=== PATIENT | female | born 1985 | race Asian ===

== ENCOUNTER 2024-07-27 23:19 | Emergency (ER) | payer SELFPAY ==
[~2024-07-27] VITALS: Ht 157.5 cm; Wt 68.0 kg
[2024-07-27 23:31] VITALS: O2SAT 98
[2024-07-28 02:36] LABS: BASOPHILS % 0.3 % (0.0-2.0); EOSINOPHILS % 0.2 % (0.0-5.0); HEMATOCRIT. 39.6 % (36.0-48.0); HEMOGLOBIN. 13.3 g/dL (12.0-16.0); LYMPHOCYTES % 16.2 % (20.0-50.0); MEAN CORPUSCULAR HEMOGLOBIN 29.2 pg (28.0-32.0); MEAN CORPUSCULAR HGB CONC 33.5 g/dL (31.0-37.0); MEAN CORPUSCULAR VOLUME 87.2 fL (81.0-99.0); MEAN PLATELET VOLUME 6.6 fl (7.4-10.4); MONOCYTES % 4.8 % (2.0-8.0); NEUTROPHILS % 78.5 % (40.0-76.0); PLATELET 333 x1000/uL (130-400); RED BLOOD CELL COUNT 4.54 mill/uL (4.2-5.4); RED CELL DISTRIBUTION WIDTH 14.1 % (11.6-14.6); WHITE BLOOD COUNT 11.5 x1000/uL (4.5-11.0)
[2024-07-28 02:43] LABS: CHLORIDE 107 mEq/L (98-107); POTASSIUM 3.8 mEq/L (3.5-5.1); SODIUM 140 mEq/L (136-145)
[2024-07-28 02:44] LABS: CARBON DIOXIDE 23 mEq/L (21-32)
[2024-07-28 02:45] LABS: CALCIUM 9.8 mg/dL (8.7-10.4)
[2024-07-28 02:49] LABS: CREATININE 0.5 mg/dL (0.6-1.0); GLUCOSE 116 mg/dL (70-105); UREA NITROGEN BLOOD 7 mg/dL (9-23)
[2024-07-28 02:54] LABS: TROPONIN I HIGH SENSITIVITY < 4 ng/L (3.0-34)
[2024-07-28 04:03] VITALS: BP 147/90; PULSE 77; RESP 20; TEMP 36.61404; O2SAT 98
== END 2024-07-28 04:04 | disposition home or self-care (01) ==
LOC: ER 23:19
DX: F41.9 Anxiety disorder, unspecified (principal); I10 Essential (primary) hypertension
CPT/HCPCS: 36415; 71045; 80048; 83880; 84484; 85025; 93005; 99285